=== PATIENT | female | born 1995 | race African-American/Black ===

== ENCOUNTER 2020-03-26 04:20 | Emergency (ER) | payer MEDICAID ==
[~2020-03-26] VITALS: Ht 167.6 cm; Wt 59.0 kg
[2020-03-26] MEDS ORDERED: LORazepam Inj 2mg/ml 1ml IV ONE (04:30)
[2020-03-26] MEDS ORDERED: DiphenhydrAMINE 50mg/ml Inj IVP ONE (04:30)
[2020-03-26] MEDS ORDERED: Albuterol ud Inhalation HHN ONE (04:30)
--- NOTE | 2020-03-26 04:30 | NUR ---
ED Nurse Note: Patient was brought to the ED from home with c/o resp distress. S/sx occured after eating hot cheetos and milk onset unk. Patient became anxious and tried to vomit but was unsuccessful. (+) wheezes and hyperventilation heard and observed upon arrival. No rash or tongue swelling seen. Denies CP, fever and chills. Placed on monitor bed.
--- NOTE | 2020-03-26 04:31 | NUR ---
ED Nurse Note: ERMD at bedside
--- NOTE | 2020-03-26 04:33 | Emergency Room Report ---
History of Present Illness General Chief Complaint: Dyspnea/Respdistress Source: Patient, Friend Present Illness HPI This a 24-year-old female with history of asthma and anxiety. She was brought in by her friend with chief complaint of allergic reaction. Patient had allergic reaction when she drinks milk. She has some Cheetos tonight and 50 minutes afterward she said she felt some burning sensation in her chest. She became very nervous and try to vomit but was unsuccessful. She then started hyperventilating and wheezing. There is no rash or tongue swelling. Her friend brought her here. Allergies: Coded Allergies: No Known Allergies (Unverified , 03/26/20) COVID-19 Screening Contact w/high risk pt: No Recent Travel to affected area: No Experienced COVID-19 symptoms?: No Patient History Past Medical History: see triage record, old chart reviewed, asthma Past Surgical History: none Pertinent Family History: none Social History: Denies: smoking Now: No Immunizations: other Reviewed Nursing Documentation: PMH: Agreed; PSxH: Agreed Nursing Documentation-PMH Hx Asthma: Yes Review of Systems Eye: Denies: eye pain, blurred vision ENT: Denies: ear pain, nose congestion, throat swelling Respiratory: Reports: shortness of breath, wheezing; Denies: cough Cardiovascular: Denies: chest pain, palpitations Gastrointestinal: Denies: abdominal pain, diarrhea, nausea, vomiting Musculoskeletal: Denies: back pain, joint pain Skin: Denies: rash Neurological: Denies: headache, numbness Endocrine: Denies: increased thirst, increased urine Hematologic/Lymphatic: Denies: easy bruising All Other Systems: negative except mentioned in HPI Physical Exam Vitals unremarkable Sp02 EP Interpretation: reviewed, normal General Appearance: well appearing, alert, other - Anxious Head: normocephalic, atraumatic Eyes: bilateral eye PERRL, bilateral eye EOMI ENT: hearing grossly normal, normal pharynx Neck: full range of motion, supple, no meningismus Respiratory: chest non-tender, normal breath sounds, other - Forceful wheezing Cardiovascular #1: regular rate, rhythm, no murmur Gastrointestinal: normal bowel sounds, non tender, no mass, no organomegaly, no bruit, non-distended Musculoskeletal: back normal, normal range of motion Psychiatric: anxious Medical Decision Making Diagnostic Impression: Primary Impression: Allergic reaction Qualified Codes: T78.40XA - Allergy, unspecified, initial encounter Additional Impression: Panic attack ER Course Patient presents with possible allergic reaction. She does not display any rash or any edema. She was hyperventilating very anxious. Symptom improved after Ativan and Benadryl. No evidence of anaphylaxis. Status: improved Disposition: HOME, SELF-CARE Condition: Improved Scripts Prednisone* (PREDNISONE*) 20 Mg Tablet 40 MG ORAL DAILY, #10 TAB Prov: Jhonny Ceron MD 03/26/20 Diphenhydramine Hcl* (BENADRYL*) 25 Mg Capsule 25 MG ORAL Q6H PRN for Itching, #30 CAP Prov: Jhonny Ceron MD 03/26/20 Additional Instructions: Follow-up with in 2 to 3 days if not better. Return if symptoms worsen. Jhonny Ceron MD Mar 26, 2020 04:33
[2020-03-26] MEDS ORDERED: Solu-MEDROL 125mg Inj IVP ONE (04:45)
--- NOTE | 2020-03-26 04:45 | NUR ---
ED Nurse Note: RT at bedside
[2020-03-26 05:08] VITALS: BP 132/76
[2020-03-26] MEDS ORDERED: BENADRYL25 MG ORAL (05:20)
[2020-03-26] MEDS ORDERED: PREDNISONE20 MG ORAL (05:20)
--- NOTE | 2020-03-26 05:27 | NUR ---
ED Nurse Note: Patient resting/sleeping on bed. (-) wheezes
[2020-03-26 07:02] VITALS: BP 132/76
--- NOTE | 2020-03-26 07:02 | NUR ---
ER DISCHARGE NOTE: Patient is cleared to be discharged per ERMD, pt is aox4, on room air, with stable vital signs. pt was given dc and prescription instructions, pt was able to verbalize understanding, pt id band and iv site removed without complications. pt is able to ambulate with steady gait. pt took all belongings.
== END 2020-03-26 07:03 | disposition home or self-care (01) ==
LOC: EMR 04:31
DX: T78.40XA Allergy, unspecified, initial encounter (principal); F41.0 Panic disorder [episodic paroxysmal anxiety]; F41.9 Anxiety disorder, unspecified; X58.XXXA Exposure to other specified factors, initial encounter
CPT/HCPCS: 94640; 96374; 96375; J1200; J2930; Z7502; 99283